=== PATIENT | female | born 1955 | race Caucasian/White ===

== ENCOUNTER 2018-02-23 07:02 | Day surgery (SDC) | payer MEDICARE, OTHER ==
[~2018-02-23] VITALS: Ht 162.6 cm; Wt 100.6 kg
[~2018-02-23 07:02] MED LIST: CARI350T PO; DIAZ10TA PO; FLUT1DIS IH; FOLI-17 PO; GABA800T2 PO; INFL100V PO; LEVO0.5P PO; LEVO25TA4; LEVO50TA5; METH2.5T PO; OMEP40CA6 PO; OXYC-296 PO; OXYC20TA42 PO; TIOT18CA INH; TRAZ-137 PO
[2018-02-23 07:31] VITALS: BP 165/99
[2018-02-23] MEDS ORDERED: LACTATED RINGERS 1,000 ML IV SCH (07:34)
[2018-02-23 07:56] VITALS: BP 165/99
[2018-02-23] MEDS ORDERED: MIDAZOLAM 1 MG/ML, 2ML ONE (08:32)
[2018-02-23] MEDS ORDERED: FENTANYL PF 100 MCG/2ML ONE (08:32)
[2018-02-23] MEDS ORDERED: PROPOFOL 50 ML ONE (08:33)
[2018-02-23] MEDS ORDERED: ACETAMINOPHEN 325 MG TABLET PO PRN (09:30)
[2018-02-23] MEDS ORDERED: HALOPERIDOL 5 MG/ML IV PRN (09:30)
[2018-02-23] MEDS ORDERED: MEPERIDINE/PF 25MG/0.5ML IVPush PRN (09:30)
[2018-02-23] MEDS ORDERED: PROMETHAZINE 25 MG/ML, 1ML IV PRN (09:30)
[2018-02-23] MEDS ORDERED: ALBUTEROL/IPRATROPIUM 2.5MG/0.5MG, 3 ML NPPB PRN (09:30)
[2018-02-23] MEDS ORDERED: HYDROmorphone 2 MG/ML, 1ML IVPush PRN (09:30)
[2018-02-23] MEDS ORDERED: FENTANYL PF 100 MCG/2ML IV PRN (09:30)
[2018-02-23] MEDS ORDERED: hydrALAzine 20 MG/ML, 1ML IV PRN (09:30)
[2018-02-23] MEDS ORDERED: LORazepam 2 MG/ML, 1ML IVPush PRN (09:30)
[2018-02-23] MEDS ORDERED: OXYcodone 5 MG/5 ML ORAL.SOL UDC PO PRN (09:30)
== END 2018-02-23 11:20 | disposition home or self-care (01) ==
LOC: OUT 07:02
PROVIDERS: ATTEND Internal Medicine Geriatric Medicine
DX: K25.4 Chronic or unspecified gastric ulcer with hemorrhage (principal); K31.7 Polyp of stomach and duodenum; K21.9 Gastro-esophageal reflux disease without esophagitis; J44.9 Chronic obstructive pulmonary disease, unspecified; F17.200 Nicotine dependence, unspecified, uncomplicated; Z86.010 Personal history of colon polyps; Z88.1 Allergy status to other antibiotic agents
CPT/HCPCS: 43235; 45378; 93005; J2250; J2704; J3010